=== PATIENT | male | born 1970 | race Caucasian/White ===

== ENCOUNTER 2018-12-10 18:59 | Emergency (ER) | payer OTHER ==
[~2018-12-10] VITALS: Ht 185.4 cm; Wt 113.4 kg
[~2018-12-10 18:59] MED LIST: BACTRIM DS TAB1 EACH PO; BENZONATATE100 MG PO; CITRATE OF MAG296 ML PO; DOXYCYCLINE 10100 M2 PO; FLEXERIL PO; GUAIFENESIN WI120 ML PO; HYDROCODON-ACE1 EAC7 PO; NOHOMEMEDICATIONS; NORCO 5-325 TA1 EACH PO; PREDNISONE 20 M20 MG PO; PREDNISONE50 MG PO; PRILOSEC40 MG PO; PROAIR HFA8.5 GM IH; PROAIR HFA8.5 GM INH; SPIRIVA INH; TRAMADOL 50 MG50 MG PO; ZOFRAN4 MG PO
[2018-12-10] MEDS ORDERED: METFORMIN HCL500 MG PO (19:18)
[2018-12-10] MEDS ORDERED: NORCO 7.5-3251 EACH PO (19:56)
[2018-12-10 20:11] VITALS: BP 112/69
== END 2018-12-10 20:13 | disposition home or self-care (01) ==
LOC: M.ERS 18:59
DX: S99.822A Other specified injuries of left foot, initial encounter (principal); J44.9 Chronic obstructive pulmonary disease, unspecified; E11.9 Type 2 diabetes mellitus without complications; Z88.0 Allergy status to penicillin; X58.XXXA Exposure to other specified factors, initial encounter; Y92.89 Other specified places as the place of occurrence of the external cause; Y99.0 Civilian activity done for income or pay; Y99.8 Other external cause status